=== PATIENT | female | born 1980 | race Two or more races ===

== ENCOUNTER 2023-03-30 05:20 | Emergency (ER) | payer BC, OTHER ==
[~2023-03-30] VITALS: Ht 165.1 cm; Wt 63.0 kg
[2023-03-30 05:20] VITALS: BP 122/76; PULSE 78; RESP 16; TEMP 97.5
[2023-03-30 07:02] VITALS: O2SAT 97
[2023-03-30] MEDS ORDERED: KETOROLAC TROMETH 30 MG/ML 1ML VIAL IM ONE (07:45)
[2023-03-30] MEDS ORDERED: HYDROcodone-ACET 10/325MG TAB PO ONE (07:45)
[2023-03-30] MEDS ORDERED: methylPREDNISolone ACETATE 80 MG/ML VL IM ONE (07:45)
== END 2023-03-30 08:58 | disposition home or self-care (01) ==
LOC: ER 05:20
DX: M06.9 Rheumatoid arthritis, unspecified (principal)
CPT/HCPCS: 96372; 99284; J1040; J1885